=== PATIENT | female | born 1980 | race Caucasian/White ===

== ENCOUNTER 2024-05-06 13:44 | Emergency (ER) | payer MEDICAID, OTHER ==
[~2024-05-06] VITALS: Ht 172.7 cm; Wt 94.2 kg
[2024-05-06 14:07] VITALS: BP 149/75; PULSE 88; RESP 16; O2SAT 100
[2024-05-06] MEDS: CLINDAMYCIN HCL 150 MG CAP PO ONE (14:44)
[2024-05-06] MEDS: cefTRIAXone SOD 1,000 MG VL IM ONE (14:49)
[2024-05-06] MEDS ORDERED: CLIN1CAP70 PO (14:56)
[2024-05-06] MEDS ORDERED: CEPH250C PO (14:56)
== END 2024-05-06 16:05 | disposition home or self-care (01) ==
LOC: ER 13:44
DX: K02.9 Dental caries, unspecified (principal)
CPT/HCPCS: 96372; 99283; J0696